=== PATIENT | female | born 1965 | race Caucasian/White ===

== ENCOUNTER 2023-08-15 01:58 | Emergency (ER) | payer BC, SELFPAY ==
[2023-08-15 01:58] VITALS: BMI 27.8
[2023-08-15 02:04] VITALS: BP 98/52
[2023-08-15 02:17] VITALS: BP 130/52
[2023-08-15] MEDS: PERCOCET 5/325 1 TABLET PO (02:58)
--- NOTE | 2023-08-15 03:17 | ED.MUSCINJ ---
HPI-Injury
<MARCELLE Smith - Last Filed: 08/15/23 04:19>
General
Chief Complaint: Fall
Source: patient
Exam Limitations: none
Time Seen by Provider: 08/15/23 03:17
Travel History
Have you had any contact with someone who has COVID-19?: No
Do you have any symptoms of coronavirus? Fever > 100 degrees, chills, cough, shortness of breath, sore throat, loss of taste or smell, muscle aches, or headache?: No
History of Present Illness-Injury
Initial Injury comments:
This is a 57 yo female with no significant PMH presenting for L arm pain after a fall. At 1:30 am, she was taking her dog out and slipped on the steps, falling on her L arm. She now describes 8/10 pain radiating from her L wrist to the L antecubital
region.
On exam, L wrist is significantly tender, no bony deformities detected, pulses and sensation intact. She describes shooting pain with finger abduction.
Past History
<MARCELLE Smith - Last Filed: 08/15/23 04:19>
Past History
ED Past Medical History: None
ED Past Surgical History: None
Social History
Tobacco: Non-smoker
Review of Systems
<MARCELLE Smith - Last Filed: 08/15/23 04:19>
Review of Systems
Allergies reviewed?: Yes
Constitutional: Reports no symptoms
Respiratory: Reports no symptoms
Cardiac: Reports no symptoms
Musculoskeletal: Reports joint pain and joint swelling
Phy Exam
<MARCELLE Smith - Last Filed: 08/15/23 04:19>
General Physical Exam
General Presentation: moderate distress
General age: appears stated age
Neurological Exam
Neurological Exam: alert, oriented x3 and motor weakness
Musculoskeletal Exam
Musculoskeletal Exam: joint swelling, neuro vasc intact and other (restricted wrist ROM due to pain)
Injury Course
<MARCELLE Smith - Last Filed: 08/15/23 04:19>
Orders/Labs/Results
Orders:
Orders
08/15/23 02:09
Wrist, Left 3 Views CR [CR Wrist - Left Min 3 Views] Urgent
Comment:
Reason For Exam: fell, c/o intense pain and swelling
08/15/23 02:54
Oxycodone/Acetaminophen [Percocet 5/325] 1 tablet PO NOW STA
<Felix Vivas DO - Last Filed: 08/15/23 04:28>
Orders/Labs/Results
Orders:
Orders
08/15/23 02:09
Wrist, Left 3 Views CR [CR Wrist - Left Min 3 Views] Urgent
Comment:
Reason For Exam: fell, c/o intense pain and swelling
08/15/23 02:54
Oxycodone/Acetaminophen [Percocet 5/325] 1 tablet PO NOW STA
<MARCELLE Smith - Last Filed: 08/15/23 04:19>
MDM/Problems Addressed
Differential Diagnosis Includes:
Distal radius fracture confirmed on XRAY
-Patient given percocet
-Sugar tong splint applied
<MARCELLE Smith - Last Filed: 08/15/23 04:19>
*Critical Care Note
Total Time (30-74mins, 75-104mins- exclusive of procedures): Not Applicable
ED Attending Note
<MARCELLE Smith - Last Filed: 08/15/23 04:19>
-
Portions of this chart may have been created with voice recognition software.� Occasional wrong word or��sound alike� substitutions may have occurred due to the inherent limitations of voice recognition software.
<Felix Vivas, DO - Last Filed: 08/15/23 04:28>
ED Attending Note
Patient seen and examined by attending physician: Yes
I performed the substantive portion of visit, reviewed & personally made and approve the management plan that is documented in note by myself or LON.: Yes
ED Attending Note:
Pleasant 57-year-old female presents with left wrist pain. She states that she fell down some steps while walking the dog landing on an outstretched arm. Denies head injury or loss of consciousness. Reports no other pain. Upon arrival, patient
received pain medication at had ice which helped alleviate the pain. Patient was seen in conjunction with the PA student. I have reviewed and agree with the history and treatment plan presented. On my independent physical exam, patient is awake,
alert, and oriented x3, moderate acute distress before pain medication. Good distal pulses. Good color. Normal capillary refill. Good sensation.
Discharge Plan
Departure
Patient Disposition: Home (Routine Discharge)
Date of Disposition: 08/15/23
Time of Disposition: 04:04
Patient with high blood pressure during this ER visit?: Yes
Discharge Problem:
Fracture of wrist
Instructions: Preventing falls in adults, How to care for a splint, BLOOD PRESSURE, Wrist Fracture
Prescriptions:
New
oxycodone-acetaminophen [Percocet] 5-325 mg tablet
1 tab PO Q6HPRN PRN (Reason: pain) Qty: 10 0RF
No Action
naproxen 500 MG tablet
500 mg PO BID Qty: 20 0RF
cyclobenzaprine 10 MG tablet
10 mg PO TIDPRN PRN (Reason: MS) Qty: 15 0RF
Referrals:
Jamaal House CRNP [Family Provider] -
Deshawn Saeed MD [Active] -
Activity Restrictions/Additional Instructions:
It was a pleasure meeting you and taking part in your care. We hope for your continued healing and wellness.
Please read discharge instructions in their entirety. However, they are for general education and may not describe your exact diagnosis at discharge. Information on your ER visit and medical conditions were discussed with you along with appropriate
follow up information...
If indicated, please take your medications as instructed and indicated on discharge paperwork.
Please schedule a follow up appointment as directed. Call to schedule an appointment
Please return to the emergency department with ANY change in, persisting, or worsening of symptoms. If any of your symptoms do not improve, or persist, or become more severe within 6-12 hours, please return to the emergency department for further
care.
Please return to the emergency department if you develop a headache, neck pain/stiffness, fever greater than 100.4F, chest pain, shortness of breath, persistent nausea, vomiting, slurred speech, difficulty walking, numbness/tingling, weakness, signs
of infection or any other symptoms that are worrisome to you.
If you have any questions or concerns please do not hesitate to call the Hospital at or E-mail me directly at [email or web address]
Interventions
Interventions:
ED-Musculoskeletal Assessment Last Done: 08/15/23 03:01
ED- Neurological Assessment Last Done: 08/15/23 03:01
ED-Skin Assessment Last Done: 08/15/23 03:01
Discharge Date and Time
Print Language: SYRIAC
[2023-08-15 04:28] VITALS: BP 102/69
== END 2023-08-15 04:31 | disposition home or self-care (01) ==
LOC: EMR 01:58
PROVIDERS: EMERGENCY PHYSICIAN Student in an Organized Health Care Education/Training Program; FAMILY PHYSICIAN Nurse Practitioner Family
DX: S52.592A Other fractures of lower end of left radius, initial encounter for closed fracture (principal); W10.9XXA Fall (on) (from) unspecified stairs and steps, initial encounter; Y93.89 Activity, other specified; R03.0 Elevated blood-pressure reading, without diagnosis of hypertension
CPT/HCPCS: 99283; 29125; 73110

== ENCOUNTER → 2023-12-10 09:55 | Outpatient (REF) | payer BC, SELFPAY | LOC: HWRAD 09:55 | PROVIDERS: ATTENDING PHYSICIAN Nurse Practitioner Family | DX: S62.109D Fracture of unspecified carpal bone, unspecified wrist, subsequent encounter for fracture with routine healing (principal) | CPT/HCPCS: 77080 ==

== ENCOUNTER → 2023-12-15 15:34 | Outpatient (REF) | payer BC, SELFPAY | LOC: HWWDC 15:34 | PROVIDERS: ATTENDING PHYSICIAN Nurse Practitioner Family | DX: Z12.31 Encounter for screening mammogram for malignant neoplasm of breast (principal) | CPT/HCPCS: 77063; 77067 ==